=== PATIENT | female | born 1960 | race Caucasian/White ===

== ENCOUNTER 2021-05-05 09:14 | Day surgery (SDC) | payer OTHER ==
--- NOTE | 2021-05-05 09:42 | NUR ---
Ambulatory in Day Surgery History, Chart, Medications and Allergies reviewed before start of procedure.Patient confirms NPO status and agrees with scheduled PROCEDURE. PT IS ALERT &ORIENTED.DENIES ANY NEW CHEST PAIN/PRESSURE OR ALERGIES TO MEDICATIONS.
--- NOTE | 2021-05-05 10:24 | NUR ---
Patient up to Ambulate independently. Gait steady. Discharge instructions reviewed with patient. Patient verbalizes understanding. Copy given to patient to take home.AMBULATORY AT DISCHARGE
== END 2021-05-05 23:52 | disposition home or self-care (01) ==
LOC: ORSCMMR 09:14 → ORD 09:14 → CT 09:14 → ORSCMMR 09:15 → ORD 09:30 → ORSCMMR 09:30 → CT 10:00 → ORSCMMR 23:52
DX: R07.89 Other chest pain (principal); I27.20 Pulmonary hypertension, unspecified; E78.5 Hyperlipidemia, unspecified; Q21.1 Atrial septal defect; E11.9 Type 2 diabetes mellitus without complications; E66.9 Obesity, unspecified; Z68.33 Body mass index [BMI] 33.0-33.9, adult; I51.7 Cardiomegaly
CPT/HCPCS: 75574; Q9967